=== PATIENT | female | born 1950 | race Caucasian/White ===

== ENCOUNTER 2025-04-12 11:38 | Day surgery (SDC) | payer MEDICARE ==
[2025-04-12] MEDS ORDERED: Acetaminophen 500 MG TAB ONE (12:34)
[2025-04-12] MEDS ORDERED: diphenhydrAMINE 25 MG CAP ONE (12:34)
[2025-04-12] MEDS: diphenhydrAMINE 25 MG CAP PO SCH (12:37)
[2025-04-12] MEDS: Acetaminophen 500 MG TAB PO SCH (12:37)
== END 2025-04-12 15:56 | disposition home or self-care (01) ==
LOC: ONC/OP 11:38
PROVIDERS: ATTEND Internal Medicine Hematology & Oncology
DX: D64.9 Anemia, unspecified (principal); C83.32 Diffuse large B-cell lymphoma, intrathoracic lymph nodes
CPT/HCPCS: 36430; 86850; 86900; 86901; 86920; J1642; P9016; 36415; 80053

== ENCOUNTER 2025-04-22 14:03 | Inpatient (IN) | payer MEDICARE ==
[2025-04-22] MEDS ORDERED: Ondansetron PF 4 MG/2 ML Vial IVP PRN (14:15)
[2025-04-22] MEDS ORDERED: Electrolyte Replacement Protocol 1 EACH FS SCH (14:15)
[2025-04-22] MEDS ORDERED: Senokot S 8.6-50 MG TAB PO PRN (14:15)
[2025-04-22] MEDS ORDERED: Guaifenesin DM 100-10/5 ML UDCUP PO PRN (14:15)
[2025-04-22 15:11] LABS: #Basophils Less than 0.03 10x3/uL (0.0-0.2); #Eosinophils Less than 0.03 10x3/uL (0.0-0.7); #Monocytes 0.15 10x3/uL (0.11-0.59); #Neutrophils 6.52 10x3/uL (1.40-6.50); %Basophils 0.3 % (0.0-1.0); %Eosinophils 0.3 % (0.0-10.0); %Lymphocytes 7.7 % (21.0-51.0); %Monocytes 2.0 % (0.0-10.0); %Neutrophils 87.9 % (42.0-75.0); Hematocrit 26.7 % (36.0-47.0); Hemoglobin 8.9 g/dL (12.0-16.0); Mean Corpuscular Hemoglobin 30.6 pg (27.0-31.0); Mean Corpuscular Volume 91.8 fL (78.0-98.0); Platelet Count 224 10x3/uL (130-400); Red Blood Cell (RBC) Count 2.91 mill/uL (4.20-5.40); White Blood Cell (WBC) Count 7.41 10x3/uL (4.8-10.8)
[2025-04-22] MEDS: Sulfameth/Trimethoprim DS 800-160mg TAB PO SCH (15:14)
[2025-04-22] MEDS: Gabapentin 100 MG CAP PO SCH (15:16)
[2025-04-22 15:30] LABS: ALT (SGPT) 28 U/L (Less than 34); AST (SGOT) 35 U/L (11-34); Albumin 3.8 g/dL (3.1-4.5); Alkaline Phosphatase 74 U/L (40-110); Anion Gap 12 mmol/L (10-20); BUN (Urea Nitrogen) 23 mg/dL (9.8-20.1); Bilirubin, Total 0.3 mg/dL (0.3-1.2); Calc. Creatinine Clearance 0 mL/min (70-130); Calcium 8.6 mg/dL (7.8-10.44); Carbon Dioxide 21 mmol/L (23-31); Chloride 106 mmol/L (98-107); Globulin 2.2 g/dL (2.4-3.5); Glucose 143 mg/dL (83-110); Potassium 3.9 mmol/L (3.5-5.1); Sodium 135 mmol/L (136-145)
[2025-04-22 15:38] VITALS: BMI 22.8
[2025-04-22] MEDS: Famotidine/PF 20 mg/2ml Vial SLOW IVP SCH ×2 (16:37→21:49)
[2025-04-22] MEDS: ETOPOSIDE IVPB SCH (17:57)
[2025-04-22] MEDS: SODIUM CHLORIDE 0.9% IVPB SCH ×2 (17:57→19:43)
[2025-04-22] MEDS: DOXORUBICIN IVPB SCH (19:43)
[2025-04-22] MEDS ORDERED: Carvedilol 6.25 MG TAB PO SCH (21:00)
[2025-04-23 05:33] LABS: Anion Gap 15 mmol/L (10-20); BUN (Urea Nitrogen) 29 mg/dL (9.8-20.1); Calc. Creatinine Clearance 54 mL/min (70-130); Calcium 8.6 mg/dL (7.8-10.44); Carbon Dioxide 18 mmol/L (23-31); Chloride 105 mmol/L (98-107); Glucose 194 mg/dL (83-110); Magnesium 1.9 mg/dL (1.6-2.6); Potassium 3.5 mmol/L (3.5-5.1); Sodium 134 mmol/L (136-145)
[2025-04-23 05:38] LABS: Hematocrit 28.0 % (36.0-47.0); Hemoglobin 9.3 g/dL (12.0-16.0); Mean Corpuscular Hemoglobin 30.6 pg (27.0-31.0); Mean Corpuscular Volume 92.1 fL (78.0-98.0); Platelet Count 252 10x3/uL (130-400); Red Blood Cell (RBC) Count 3.04 mill/uL (4.20-5.40); White Blood Cell (WBC) Count 11.34 10x3/uL (4.8-10.8)
[2025-04-23 06:51] LABS: Anisocytosis MODERATE=16-30 cells HPF (0-5); Macrocytosis SLIGHT = 6-15 cells HPF (0-5); Platelet Adequacy Comment Platelets Normal; Polychromasia SLIGHT = 2-3 cells HPF (0-2); Smudge Cells 4.9 %
[2025-04-23] MEDS: Pantoprazole 40 MG DR.TAB PO SCH (10:47)
[2025-04-23] MEDS: Allopurinol 300 MG TAB PO SCH (10:47)
[2025-04-23] MEDS: Enoxaparin 40 MG (0.4 mL) SYRINGE SC SCH (10:48)
[2025-04-23] MEDS: Magnesium 2 GM/50 ML(in water) 2 GM in Premix 1 BAG IVPB SCH (15:40)
[2025-04-23] MEDS: Rosuvastatin 10 MG TAB PO SCH (20:22)
[2025-04-23] MEDS: BuPROPion XL 150 MG ER.TAB PO SCH (20:23)
[2025-04-23] MEDS: Mupirocin 1 GM TUBE TP SCH (21:34)
[2025-04-24 05:55] LABS: ALT (SGPT) 23 U/L (Less than 34); AST (SGOT) 25 U/L (11-34); Albumin 3.5 g/dL (3.1-4.5); Alkaline Phosphatase 60 U/L (40-110); Anion Gap 11 mmol/L (10-20); BUN (Urea Nitrogen) 25 mg/dL (9.8-20.1); Bilirubin, Total 0.2 mg/dL (0.3-1.2); Calc. Creatinine Clearance 63 mL/min (70-130); Calcium 8.1 mg/dL (7.8-10.44); Carbon Dioxide 19 mmol/L (23-31); Chloride 108 mmol/L (98-107); Globulin 1.8 g/dL (2.4-3.5); Glucose 113 mg/dL (83-110); Potassium 3.6 mmol/L (3.5-5.1); Sodium 134 mmol/L (136-145); Uric Acid 3.0 mg/dL (2.5-6.2)
[2025-04-24 07:16] LABS: #Basophils Less than 0.03 10x3/uL (0.0-0.2); #Eosinophils Less than 0.03 10x3/uL (0.0-0.7); #Monocytes 0.79 10x3/uL (0.11-0.59); #Neutrophils 11.58 10x3/uL (1.40-6.50); %Basophils 0.1 % (0.0-1.0); %Eosinophils 0.0 % (0.0-10.0); %Lymphocytes 3.6 % (21.0-51.0); %Monocytes 6.0 % (0.0-10.0); %Neutrophils 87.4 % (42.0-75.0); Hematocrit 24.9 % (36.0-47.0); Hemoglobin 8.2 g/dL (12.0-16.0); Mean Corpuscular Hemoglobin 30.4 pg (27.0-31.0); Mean Corpuscular Volume 92.2 fL (78.0-98.0); Platelet Count 245 10x3/uL (130-400); Red Blood Cell (RBC) Count 2.70 mill/uL (4.20-5.40); White Blood Cell (WBC) Count 13.24 10x3/uL (4.8-10.8)
[2025-04-24] MEDS: Sulfameth/Trimethoprim DS 800-160mg TAB PO SCH (08:21)
[2025-04-24] MEDS: valACYclovir 500 MG TAB PO SCH (08:22)
[2025-04-24] MEDS: BuPROPion XL 150 MG ER.TAB PO SCH (08:22)
[2025-04-24] MEDS: Valsartan 80 MG TAB PO SCH (20:42)
[2025-04-25 05:34] LABS: #Basophils Less than 0.03 10x3/uL (0.0-0.2); #Eosinophils Less than 0.03 10x3/uL (0.0-0.7); #Monocytes 0.75 10x3/uL (0.11-0.59); #Neutrophils 5.62 10x3/uL (1.40-6.50); %Basophils 0.1 % (0.0-1.0); %Eosinophils 0.0 % (0.0-10.0); %Lymphocytes 9.4 % (21.0-51.0); %Monocytes 10.4 % (0.0-10.0); %Neutrophils 77.9 % (42.0-75.0); Hematocrit 29.4 % (36.0-47.0); Hemoglobin 9.6 g/dL (12.0-16.0); Mean Corpuscular Hemoglobin 31.0 pg (27.0-31.0); Mean Corpuscular Volume 94.8 fL (78.0-98.0); Platelet Count 312 10x3/uL (130-400); Red Blood Cell (RBC) Count 3.10 mill/uL (4.20-5.40); White Blood Cell (WBC) Count 7.22 10x3/uL (4.8-10.8)
[2025-04-25 06:06] LABS: ALT (SGPT) 27 U/L (Less than 34); AST (SGOT) 28 U/L (11-34); Albumin 4.1 g/dL (3.1-4.5); Alkaline Phosphatase 70 U/L (40-110); Anion Gap 15 mmol/L (10-20); BUN (Urea Nitrogen) 31 mg/dL (9.8-20.1); Bilirubin, Total 0.3 mg/dL (0.3-1.2); Calc. Creatinine Clearance 42 mL/min (70-130); Calcium 8.7 mg/dL (7.8-10.44); Carbon Dioxide 20 mmol/L (23-31); Chloride 107 mmol/L (98-107); Globulin 2.3 g/dL (2.4-3.5); Glucose 88 mg/dL (83-110); Potassium 3.7 mmol/L (3.5-5.1); Sodium 138 mmol/L (136-145); Uric Acid 3.1 mg/dL (2.5-6.2)
[2025-04-25] MEDS: Furosemide 20 MG TAB PO SCH (09:57)
[2025-04-25] MEDS: Allopurinol 100 MG TAB PO SCH (09:58)
[2025-04-26 05:17] LABS: #Basophils Less than 0.03 10x3/uL (0.0-0.2); #Eosinophils Less than 0.03 10x3/uL (0.0-0.7); #Monocytes 0.25 10x3/uL (0.11-0.59); #Neutrophils 3.36 10x3/uL (1.40-6.50); %Basophils 0.0 % (0.0-1.0); %Eosinophils 0.0 % (0.0-10.0); %Lymphocytes 11.8 % (21.0-51.0); %Monocytes 6.0 % (0.0-10.0); %Neutrophils 80.8 % (42.0-75.0); Hematocrit 26.7 % (36.0-47.0); Hemoglobin 8.9 g/dL (12.0-16.0); Mean Corpuscular Hemoglobin 31.1 pg (27.0-31.0); Mean Corpuscular Volume 93.4 fL (78.0-98.0); Platelet Count 266 10x3/uL (130-400); Red Blood Cell (RBC) Count 2.86 mill/uL (4.20-5.40); White Blood Cell (WBC) Count 4.16 10x3/uL (4.8-10.8)
[2025-04-26 05:39] LABS: ALT (SGPT) 25 U/L (Less than 34); AST (SGOT) 23 U/L (11-34); Albumin 4.0 g/dL (3.1-4.5); Alkaline Phosphatase 61 U/L (40-110); Anion Gap 13 mmol/L (10-20); BUN (Urea Nitrogen) 26 mg/dL (9.8-20.1); Bilirubin, Total 0.4 mg/dL (0.3-1.2); Calc. Creatinine Clearance 55 mL/min (70-130); Calcium 8.6 mg/dL (7.8-10.44); Carbon Dioxide 20 mmol/L (23-31); Chloride 104 mmol/L (98-107); Globulin 2.1 g/dL (2.4-3.5); Glucose 99 mg/dL (83-110); Potassium 3.7 mmol/L (3.5-5.1); Sodium 133 mmol/L (136-145); Uric Acid 3.4 mg/dL (2.5-6.2)
[2025-04-26] MEDS: Furosemide 20 MG (2 mL) VIAL SLOW IVP SCH (10:55)
[2025-04-26] MEDS: PALONOSETRON HCL 0.05 MG/ML 5 ML VIAL IVP SCH (23:52)
[2025-04-26] MEDS: SODIUM CHLORIDE 0.9% IVPB SCH (23:52)
[2025-04-26] MEDS: CYCLOPHOSPHAMIDE IVPB SCH (23:52)
[2025-04-27 05:47] LABS: #Basophils Less than 0.03 10x3/uL (0.0-0.2); #Eosinophils Less than 0.03 10x3/uL (0.0-0.7); #Monocytes 0.19 10x3/uL (0.11-0.59); #Neutrophils 2.40 10x3/uL (1.40-6.50); %Basophils 0.0 % (0.0-1.0); %Eosinophils 0.3 % (0.0-10.0); %Lymphocytes 19.5 % (21.0-51.0); %Monocytes 5.8 % (0.0-10.0); %Neutrophils 73.2 % (42.0-75.0); Hematocrit 23.6 % (36.0-47.0); Hemoglobin 8.0 g/dL (12.0-16.0); Mean Corpuscular Hemoglobin 30.9 pg (27.0-31.0); Mean Corpuscular Volume 91.1 fL (78.0-98.0); Platelet Count 228 10x3/uL (130-400); Red Blood Cell (RBC) Count 2.59 mill/uL (4.20-5.40); White Blood Cell (WBC) Count 3.28 10x3/uL (4.8-10.8)
[2025-04-27 06:05] LABS: ALT (SGPT) 21 U/L (Less than 34); AST (SGOT) 19 U/L (11-34); Albumin 3.5 g/dL (3.1-4.5); Alkaline Phosphatase 48 U/L (40-110); Anion Gap 11 mmol/L (10-20); BUN (Urea Nitrogen) 31 mg/dL (9.8-20.1); Bilirubin, Total 0.3 mg/dL (0.3-1.2); Calc. Creatinine Clearance 56 mL/min (70-130); Calcium 8.2 mg/dL (7.8-10.44); Carbon Dioxide 23 mmol/L (23-31); Chloride 102 mmol/L (98-107); Globulin 1.6 g/dL (2.4-3.5); Glucose 92 mg/dL (83-110); Potassium 3.9 mmol/L (3.5-5.1); Sodium 132 mmol/L (136-145)
[2025-04-28] MEDS: Acetaminophen 325 MG TAB PO PRN (00:22)
[2025-04-28] MEDS: PEGFILGRASTIM-PBBK 6 MG/0.6 ML SYRINGE SQ SCH (00:23)
[2025-04-28 01:03] VITALS: BP 144/76; TEMP 97.5
== END 2025-04-28 01:05 | disposition home or self-care (01) | DRG 846 ==
LOC: MSONC 14:03
PROVIDERS: ADMIT Hospitalist; ATTEND Internal Medicine
DX: Z51.11 Encounter for antineoplastic chemotherapy (principal); D61.811 Other drug-induced pancytopenia; C83.30 Diffuse large B-cell lymphoma, unspecified site; E87.1 Hypo-osmolality and hyponatremia; F33.9 Major depressive disorder, recurrent, unspecified; E03.9 Hypothyroidism, unspecified; D63.0 Anemia in neoplastic disease; K12.32 Oral mucositis (ulcerative) due to other drugs; M89.8X9 Other specified disorders of bone, unspecified site; M10.072 Idiopathic gout, left ankle and foot; G62.0 Drug-induced polyneuropathy; T45.1X5A Adverse effect of antineoplastic and immunosuppressive drugs, initial encounter; G47.00 Insomnia, unspecified; E78.5 Hyperlipidemia, unspecified; Z79.899 Other long term (current) drug therapy
CPT/HCPCS: 36415; 80048; 80053; 83615; 83735; 83880; 84550; 85025; J1100; J1308; J1642; J1650; J2469; J7030; J7512; J9000; J9071; J9181; J9370; Q5130

== ENCOUNTER 2025-05-07 14:17 | Inpatient (IN) | payer MEDICARE ==
[2025-05-07 18:04] VITALS: BMI 22.2
[2025-05-07] MEDS ORDERED: Melatonin 3 MG TAB PO PRN (18:53)
[2025-05-07] MEDS ORDERED: Ondansetron PF 4 MG/2 ML Vial IVP PRN (18:53)
[2025-05-07] MEDS ORDERED: Lidocaine-Prilocaine 2.5% Cream 5 GM TUBE TOP PRN (18:54)
[2025-05-07] MEDS ORDERED: HYDROcodone/Acetaminophen 10/325 mg Tablet PO PRN (18:54)
[2025-05-07] MEDS: BuPROPion XL 150 MG ER.TAB PO SCH (22:37)
[2025-05-07] MEDS: Valsartan 80 MG TAB PO SCH (22:38)
[2025-05-07] MEDS: Acetaminophen 325 MG TAB PO PRN (22:38)
[2025-05-07] MEDS: Rosuvastatin 10 MG TAB PO SCH (22:38)
[2025-05-07] MEDS: Gabapentin 100 MG CAP PO SCH (22:39)
[2025-05-08] MEDS: Furosemide 20 MG (2 mL) VIAL SLOW IVP SCH (05:53)
[2025-05-08] MEDS: Enoxaparin 40 MG (0.4 mL) SYRINGE SC SCH (08:06)
[2025-05-08] MEDS: BuPROPion XL 150 MG ER.TAB PO SCH (08:06)
[2025-05-08] MEDS: Allopurinol 100 MG TAB PO SCH (08:06)
[2025-05-08] MEDS: valACYclovir 500 MG TAB PO SCH (08:08)
[2025-05-08] MEDS: Pantoprazole 40 MG DR.TAB PO SCH (08:08)
[2025-05-08] MEDS: Sulfameth/Trimethoprim DS 800-160mg TAB PO SCH (08:09)
[2025-05-08 08:19] LABS: Hematocrit 24.4 % (36.0-47.0); Hemoglobin 8.1 g/dL (12.0-16.0); Mean Corpuscular Hemoglobin 30.8 pg (27.0-31.0); Mean Corpuscular Volume 92.8 fL (78.0-98.0); Platelet Count 242 10x3/uL (130-400); Red Blood Cell (RBC) Count 2.63 mill/uL (4.20-5.40); White Blood Cell (WBC) Count 19.03 10x3/uL (4.8-10.8)
[2025-05-08 08:28] LABS: Anion Gap 12 mmol/L (10-20); BUN (Urea Nitrogen) 17 mg/dL (9.8-20.1); Calc. Creatinine Clearance 40 mL/min (70-130); Calcium 8.4 mg/dL (7.8-10.44); Carbon Dioxide 22 mmol/L (23-31); Chloride 99 mmol/L (98-107); Glucose 129 mg/dL (83-110); Potassium 3.0 mmol/L (3.5-5.1); Sodium 130 mmol/L (136-145)
[2025-05-08 08:52] LABS: Anisocytosis SLIGHT = 6-15 cells HPF (0-5); Ovalocytes SLIGHT = 2-5 cells HPF (0-1); Platelet Adequacy Comment Platelets Normal; Polychromasia SLIGHT = 2-3 cells HPF (0-2); Smudge Cells 0.9 %
[2025-05-08] MEDS: Sacubitril 24MG/Valsartan 26 MG TAB PO SCH (20:20)
[2025-05-09 05:11] LABS: Anion Gap 16 mmol/L (10-20); BUN (Urea Nitrogen) 18 mg/dL (9.8-20.1); Calc. Creatinine Clearance 38 mL/min (70-130); Calcium 8.3 mg/dL (7.8-10.44); Carbon Dioxide 20 mmol/L (23-31); Chloride 99 mmol/L (98-107); Glucose 103 mg/dL (83-110); Potassium 3.6 mmol/L (3.5-5.1); Sodium 131 mmol/L (136-145)
[2025-05-09 05:15] LABS: Hematocrit 25.2 % (36.0-47.0); Hemoglobin 8.2 g/dL (12.0-16.0); Mean Corpuscular Hemoglobin 30.1 pg (27.0-31.0); Mean Corpuscular Volume 92.6 fL (78.0-98.0); Platelet Count 230 10x3/uL (130-400); Red Blood Cell (RBC) Count 2.72 mill/uL (4.20-5.40); White Blood Cell (WBC) Count 16.97 10x3/uL (4.8-10.8)
[2025-05-09 05:57] LABS: Anisocytosis MODERATE=16-30 cells HPF (0-5); Burr Cells SLIGHT = 2-5 cells HPF (0-1); Macrocytosis SLIGHT = 6-15 cells HPF (0-5); Platelet Adequacy Comment Platelets Normal; Poikilocytosis MODERATE=16-30 cells HPF (0-5); Polychromasia SLIGHT = 2-3 cells HPF (0-2); Smudge Cells 18.6 %
[2025-05-09] MEDS: Dapagliflozin Propanediol 10 MG TAB PO SCH (10:19)
[2025-05-09] MEDS: Metoprolol Succinate XL 25 MG ER.TAB PO SCH (10:20)
[2025-05-10 04:50] LABS: #Basophils 0.08 10x3/uL (0.0-0.2); #Eosinophils 0.09 10x3/uL (0.0-0.7); #Monocytes 1.32 10x3/uL (0.11-0.59); #Neutrophils 10.87 10x3/uL (1.40-6.50); %Basophils 0.6 % (0.0-1.0); %Eosinophils 0.7 % (0.0-10.0); %Lymphocytes 5.3 % (21.0-51.0); %Monocytes 9.8 % (0.0-10.0); %Neutrophils 80.5 % (42.0-75.0); Hematocrit 27.2 % (36.0-47.0); Hemoglobin 8.7 g/dL (12.0-16.0); Mean Corpuscular Hemoglobin 30.2 pg (27.0-31.0); Mean Corpuscular Volume 94.4 fL (78.0-98.0); Platelet Count 270 10x3/uL (130-400); Red Blood Cell (RBC) Count 2.88 mill/uL (4.20-5.40); White Blood Cell (WBC) Count 13.49 10x3/uL (4.8-10.8)
[2025-05-10 05:13] LABS: Anion Gap 13 mmol/L (10-20); BUN (Urea Nitrogen) 23 mg/dL (9.8-20.1); Calc. Creatinine Clearance 37 mL/min (70-130); Calcium 8.4 mg/dL (7.8-10.44); Carbon Dioxide 24 mmol/L (23-31); Chloride 99 mmol/L (98-107); Glucose 97 mg/dL (83-110); Potassium 3.8 mmol/L (3.5-5.1); Sodium 132 mmol/L (136-145)
[2025-05-10] MEDS: Carvedilol 3.125 MG TAB PO SCH (15:33)
[2025-05-11 06:22] LABS: #Basophils 0.04 10x3/uL (0.0-0.2); #Eosinophils 0.07 10x3/uL (0.0-0.7); #Monocytes 0.82 10x3/uL (0.11-0.59); #Neutrophils 7.32 10x3/uL (1.40-6.50); %Basophils 0.4 % (0.0-1.0); %Eosinophils 0.8 % (0.0-10.0); %Lymphocytes 8.7 % (21.0-51.0); %Monocytes 8.9 % (0.0-10.0); %Neutrophils 79.0 % (42.0-75.0); Hematocrit 26.2 % (36.0-47.0); Hemoglobin 8.3 g/dL (12.0-16.0); Mean Corpuscular Hemoglobin 30.0 pg (27.0-31.0); Mean Corpuscular Volume 94.6 fL (78.0-98.0); Platelet Count 289 10x3/uL (130-400); Red Blood Cell (RBC) Count 2.77 mill/uL (4.20-5.40); White Blood Cell (WBC) Count 9.26 10x3/uL (4.8-10.8)
[2025-05-11 06:49] LABS: ALT (SGPT) 26 U/L (Less than 34); AST (SGOT) 29 U/L (11-34); Albumin 3.4 g/dL (3.1-4.5); Alkaline Phosphatase 77 U/L (40-110); Anion Gap 13 mmol/L (10-20); BUN (Urea Nitrogen) 23 mg/dL (9.8-20.1); Bilirubin, Total 0.3 mg/dL (0.3-1.2); Calc. Creatinine Clearance 39 mL/min (70-130); Calcium 8.4 mg/dL (7.8-10.44); Carbon Dioxide 23 mmol/L (23-31); Chloride 99 mmol/L (98-107); Globulin 2.2 g/dL (2.4-3.5); Glucose 95 mg/dL (83-110); Magnesium 2.2 mg/dL (1.6-2.6); Potassium 3.9 mmol/L (3.5-5.1); Sodium 131 mmol/L (136-145)
[2025-05-11] MEDS: Senokot S 8.6-50 MG TAB PO PRN (09:35)
[2025-05-11 11:11] VITALS: TEMP 97.8
[2025-05-11 14:59] VITALS: BP 115/57
[2025-05-11] MEDS ORDERED: Sacubitril 24MG/Valsartan 26 MG TAB PO SCH (21:00)
== END 2025-05-11 16:57 | disposition home or self-care (01) | DRG 291 ==
LOC: UNDOADMOB 14:17 → 2NO 14:17 → INTOOBSV 05-09 14:07 → OBSVTOIN 05-09 14:07 → UNDODISIN 05-11 16:57
PROVIDERS: ADMIT Internal Medicine; ATTEND Emergency Medicine
DX: I11.0 Hypertensive heart disease with heart failure (principal); I50.21 Acute systolic (congestive) heart failure; C83.30 Diffuse large B-cell lymphoma, unspecified site; N17.9 Acute kidney failure, unspecified; I42.7 Cardiomyopathy due to drug and external agent; T45.1X5A Adverse effect of antineoplastic and immunosuppressive drugs, initial encounter; M10.9 Gout, unspecified; K21.9 Gastro-esophageal reflux disease without esophagitis; E03.9 Hypothyroidism, unspecified; F41.9 Anxiety disorder, unspecified; D64.9 Anemia, unspecified; I44.7 Left bundle-branch block, unspecified; I10 Essential (primary) hypertension; Z92.21 Personal history of antineoplastic chemotherapy; Z79.899 Other long term (current) drug therapy; Z79.890 Hormone replacement therapy; Z98.890 Other specified postprocedural states; Z90.710 Acquired absence of both cervix and uterus
CPT/HCPCS: 36415; 80048; 80053; 83735; 83880; 85025; 93306; 93798; 96372; 96374; 96376; 97139; G0378; J1650; J1940